=== PATIENT | female | born 1960 | race Caucasian/White ===

== ENCOUNTER 2017-02-04 10:14 | Emergency (ER) | payer OTHER, MEDICAID ==
[~2017-02-04] VITALS: Ht 172.7 cm; Wt 84.0 kg
[2017-02-04 10:16] VITALS: BP 137/94; PULSE 78; RESP 18; TEMP 98.9; O2SAT 96
--- NOTE | 2017-02-04 10:56 | PD ---
HPI Chief Complaint: Pain: Acute or Chronic Time Seen by Provider: 10:55 Travel History International Travel<30 days: No Contact w/Intl Traveler<30days: No Traveled to known affect area: No History of Present Illness HPI 56-year-old female came to the emergency room with history of a fall 3 days ago. Patient says since then her lower back and her shoulder has been hurting. She has been taking lntc-zhk-ttvvzwi Motrin and is on Soma but the pain has not been getting better. She came here on her own and denies any difficulty walking or any bowel or bladder incontinence. Vital signs been stable otherwise. Patient has history of chronic back pain and says that this particular back pain is worse than her usual. [facility] Past Medical History Narrative Medical List of her past medical, surgical, social and family history is reviewed from the nursing note. Social History Tobacco Use: Yes Allergies-Medications (Allergen,Severity, Reaction): Coded Allergies: Adhesives (Verified Allergy, Severe, PLASTIC TAPE, 05/05/04) Morphine (Verified Allergy, Severe, Rash, 05/05/04) RASH Ms Contin (Verified Allergy, Severe, 05/05/04) Uncoded Allergies: EPIDURAL STEROID INJECTION (Allergy, Severe, 05/05/04) rufino aloid (Adverse Reaction, Unknown, 02/04/17) swelling Comments No known drug allergies. Reported Meds & Prescriptions Reported Meds & Active Scripts Active Ibuprofen 600 Mg Tab 600 Mg PO Q6H PRN Reported Aleve (Naproxen Sodium) 220 Mg Cap Remeron (Mirtazapine) 15 Mg Tab 15 Mg PO DAILY Lisinopril 40 Mg Tab 40 Mg PO AC BREAKFAST Prozac (Fluoxetine HCl) 20 Mg Cap 20 Mg PO DAILY Valium (Diazepam) 5 Mg Tab 5 Mg PO BID PRN Fioricet (Fahqewolxn-Yttyhzseiytus-Gmrkvshl) 50-300-40 Mg Cap 1-2 Cap PO Q6H PRN Soma (Carisoprodol) 350 Mg Tab 350 Mg PO QID PRN Narrative Medication List of her home medications reviewed from the nursing note. Review of Systems Except as stated in HPI: all other systems reviewed are Neg Physical Exam Narrative GENERAL: Awake, alert, mild distress SKIN: Focused skin assessment warm/dry. HEAD: Atraumatic. Normocephalic. EYES: Pupils equal and round. No scleral icterus. No injection or drainage. ENT: No nasal bleeding or discharge. Mucous membranes pink and moist. NECK: Trachea midline. No JVD. CARDIOVASCULAR: Regular rate and rhythm. No murmur appreciated. RESPIRATORY: No accessory muscle use. Clear to auscultation. Breath sounds equal bilaterally. GASTROINTESTINAL: Abdomen soft, non-tender, nondistended. Hepatic and splenic margins not palpable. MUSCULOSKELETAL: No obvious deformities. No clubbing. No cyanosis. No edema. Point tenderness over L1 and L2 on the right paraspinal aspect NEUROLOGICAL: Awake and alert. No obvious cranial nerve deficits. Motor grossly within normal limits. Normal speech. PSYCHIATRIC: Appropriate mood and affect; insight and judgment normal. Data Data Last Documented VS Vital Signs Date Time Temp Pulse Resp B/P Pulse Ox O2 Delivery O2 Flow Rate FiO2 02/04/17 10:16 98.9 78 18 137/94 96 Orders Ketorolac Inj (Toradol Inj) (02/04/17 11:30) Orphenadrine Inj (Norflex Inj) (02/04/17 11:30) Spine, Lumbar Comp W/Obliq (02/04/17 ) Spine, Thoracic-Ap/Lat/Sw(3vw) (02/04/17 ) Shoulder, Complete (>2vws) (02/04/17 ) MDM Medical Decision Making Medical Screen Exam Complete: Yes Emergency Medical Condition: Yes Medical Record Reviewed: Yes Differential Diagnosis Lumbar fracture, thoracic fracture, shoulder strain, contusion Narrative Course 12:31 PM the x-rays are within normal limit except for degenerative changes. I' ll discharge her home. Patient was given IM Toradol and Norflex. Procedures EKG Prior to Arrival: No Diagnosis Primary Impression: Fall Qualified Code: W19.XXXA - Fall, initial encounter Additional Impressions: Contusion Qualified Code: S30.0XXA - Contusion of lower back, initial encounter Right shoulder strain Qualified Code: S46.911A - Right shoulder strain, initial encounter Referrals: Primary Care Physician 2 days Additional Instructions: Please return to the ER if the condition worsens or any other new concerns. Bedrest and assistance from driving and daily activity will be required for next couple days until the symptoms are better. Follow-up with your primary care as well Med/Other Pt SpecificInfo: Prescription(s) given, No Change to Meds Scripts Ibuprofen 600 Mg [id number] Mg PO Q6H PRN (Pain/Inflammation) #40 TAB Ref 0 Prov:Susan Washington MD 02/04/17 Disposition: 01 DISCHARGE HOME Condition: Stable Susan Wasihngton MD February 04, 2017 10:55
[2017-02-04] MEDS ORDERED: SOMA350T PO (11:03)
[2017-02-04] MEDS ORDERED: BUTA1CAP PO (11:03)
[2017-02-04] MEDS ORDERED: REME15TA PO (11:07)
[2017-02-04] MEDS ORDERED: LISI40TA PO (11:07)
[2017-02-04] MEDS ORDERED: DIAZ5 PO (11:07)
[2017-02-04] MEDS ORDERED: PROZ20CA11 PO (11:07)
[2017-02-04] MEDS ORDERED: ALEV220C (11:07)
[2017-02-04] MEDS ORDERED: ORPHENADRINE INJ 60 MG/2 ML AMP IM ONE (11:30)
[2017-02-04] MEDS ORDERED: KETOROLAC TROMETHAMINE 60 MG/2 ML (IM) VIAL IM ONE (11:30)
--- NOTE | 2017-02-04 12:09 | RADRPT ---
EXAM DATE/TIME: 02/04/2017 11:51 [facility] COMPARISON: No previous studies available for comparison. INDICATIONS : Fell Tuesday landing on fountain, pain right shoulder, and low back and mid thoracic spine.. MEDICAL HISTORY : None. SURGICAL HISTORY : Spinal fusion ENCOUNTER: Initial ACUITY: 4 - 6 days PAIN SCORE: 10/10 LOCATION: Thoracic spine FINDINGS: There is mild scoliotic deformity convex to the right. Epidural stimulator is in place with the tip a t T7. There is no evidence of acute fracture. Bony mineralization is normal. The vertebral bodies are normal in alignment on the lateral view. There is mild multilevel degenerative change throughout th e spine. CONCLUSION: 1. There is no evidence of acute fracture. José Luis Rendon MD on February 04, 2017 at 12:07 Board Certified Radiologist. This report was verified electronically.
--- NOTE | 2017-02-04 12:12 | RADRPT ---
EXAM DATE/TIME: 02/04/2017 11:52 [facility] COMPARISON: No previous studies available for comparison. INDICATIONS : Fall low back pain MEDICAL HISTORY : None. SURGICAL HISTORY : Spinal fusion ENCOUNTER: Initial ACUITY: 3 days PAIN SCORE: 7/10 LOCATION: Lumbar spine FINDINGS: The vertebral bodies are normal in alignment on the lateral view. There is interbody fusion L5-S1. Th ere is multilevel disc space narrowing and marginal osteophyte formation maximal at L4-L5. There is m ultilevel facet arthritis maximal at L5-S1. No spondylolysis or spondylolisthesis is present. CONCLUSION: 1. Moderate degenerative changes as described above. There is no evidence of acute fracture. José Luis Rendon MD on February 04, 2017 at 12:08 Board Certified Radiologist. This report was verified electronically.
--- NOTE | 2017-02-04 12:19 | RADRPT ---
EXAM DATE/TIME: 02/04/2017 11:42 [facility] COMPARISON: No previous studies available for comparison. INDICATIONS : Fell on shoulder pain. MEDICAL HISTORY : None. SURGICAL HISTORY : spinal fusion ENCOUNTER: Initial ACUITY: 3 days PAIN SCORE: 9/10 LOCATION: Lumbar spine FINDINGS: Multiple view examination of the right shoulder demonstrates no evidence of fracture or dislocation. The glenohumeral and acromioclavicular joints are maintained. There is normal range of motion betwe en internal and external rotation. Bony mineralization is normal. CONCLUSION: 1. Negative examination of the shoulder. José Luis Rendon MD on February 04, 2017 at 12:16 Board Certified Radiologist. This report was verified electronically.
[2017-02-04] MEDS ORDERED: IBUP-232 PO (12:33)
== END 2017-02-04 13:20 | disposition home or self-care (01) ==
LOC: NEPD 10:14
DX: S46.911A Strain of unspecified muscle, fascia and tendon at shoulder and upper arm level, right arm, initial encounter (principal); S30.0XXA Contusion of lower back and pelvis, initial encounter; W19.XXXA Unspecified fall, initial encounter
CPT/HCPCS: 72072; 72110; 73030; 96372; 99283; J1885; J2360

== ENCOUNTER 2017-09-27 12:33 | Observation (INO) | payer MEDICAID, MEDICARE, OTHER ==
[~2017-09-27] VITALS: Ht 172.7 cm; Wt 79.8 kg
[~2017-09-27 12:33] MED LIST: ALEV220C; BUTA1CAP PO; DIAZ5 PO; IBUP-232 PO; LISI40TA PO; PROZ20CA11 PO; REME15TA PO; SOMA350T PO
[2017-09-27 12:37] VITALS: BP 155/99; PULSE 90; RESP 16; TEMP 98.4; O2SAT 96
[2017-09-27] MEDS ORDERED: PANTOPRAZOLE SOD 40 MG DELAYED RELEASE TAB PO ONE (17:45)
--- NOTE | 2017-09-27 17:49 | PD ---
HPI Chief Complaint: GI Complaint Time Seen by Provider: 17:38 Travel History International Travel<30 days: No Contact w/Intl Traveler<30days: No Traveled to known affect area: No History of Present Illness HPI 57yo F with PMH of HTN, chronic back pain presents to the ED with c/o sharp midsternal pain since eating yesterday. Said pain is sharp, nonradiating and worst with eating but still there when she does not eat. Feels tight. Denies any sob, vomiting, fever, abdominal pain, focal weakness or numbness. Has some nausea. Pt said she is able to drink but pain is worst after drinking. PFSH Past Medical History ?: Not Past Surgical History Section: Yes Gynecologic Surgery: Yes Hysterectomy: Yes Social History Alcohol Use: No Tobacco Use: Yes Substance Use: No (MARIJUANA) Allergies-Medications (Allergen,Severity, Reaction): Coded Allergies: adhesive (Unverified Allergy, Severe, PLASTIC TAPE, 05/03/17) fentanyl (Verified Allergy, Severe, 09/27/17) morphine (Unverified Allergy, Severe, 05/03/17) RASH Uncoded Allergies: EPIDURAL STEROID INJECTION (Allergy, Severe, 05/05/04) rufino aloid (Adverse Reaction, Unknown, 02/04/17) swelling Reported Meds & Prescriptions Reported Meds & Active Scripts Active Ibuprofen 600 Mg Tab 600 Mg PO Q6H PRN Reported Remeron (Mirtazapine) 15 Mg Tab 15 Mg PO DAILY Lisinopril 40 Mg Tab 40 Mg PO AC BREAKFAST Prozac (Fluoxetine HCl) 20 Mg Cap 20 Mg PO DAILY Valium (Diazepam) 5 Mg Tab 5 Mg PO BID PRN Fioricet (Hhzibanvsg-Vxwltkzeugxtx-Ktxuhatx) 50-300-40 Mg Cap 1-2 Cap PO Q6H PRN Soma (Carisoprodol) 350 Mg Tab 350 Mg PO QID PRN Review of Systems Except as stated in HPI: all other systems reviewed are Neg Physical Exam Narrative GENERAL: 57yo F not in distress. SKIN: No rash on chest wall. HEAD: Atraumatic. Normocephalic. EYES: Pupils equal and round. No scleral icterus. No injection or drainage. ENT: No nasal bleeding or discharge. Mucous membranes pink and moist. NECK: Trachea midline. No JVD. CARDIOVASCULAR: Regular rate and rhythm. No murmur appreciated. RESPIRATORY: No accessory muscle use. Clear to auscultation. Breath sounds equal bilaterally. GASTROINTESTINAL: Abdomen soft, non-tender, nondistended. MUSCULOSKELETAL: No obvious deformities. No clubbing. No cyanosis. No edema. NEUROLOGICAL: Awake and alert. No obvious cranial nerve deficits. Motor grossly within normal limits. Normal speech. PSYCHIATRIC: Appropriate mood and affect; insight and judgment normal. Data Data Last Documented VS Vital Signs Date Time Temp Pulse Resp B/P (MAP) Pulse Ox O2 Delivery O2 Flow Rate FiO2 09/27/17 12:37 98.4 90 16 155/99 (117) 96 Orders Orders Electrocardiogram (09/27/17 17:45) Basic Metabolic Panel (Bmp) (09/27/17 17:45) Complete Blood Count With Diff (09/27/17 17:45) Prothrombin Time / Inr (Pt) (09/27/17 17:45) Act Partial Throm Time (Ptt) (09/27/17 17:45) Troponin I (09/27/17 17:45) Chest, Single Ap (09/27/17 17:45) Pantoprazole (Protonix) (09/27/17 17:45) Lipase (09/27/17 17:49) Ondansetron Inj (Zofran Inj) (09/27/17 18:00) Aspirin (Aspirin) (09/27/17 19:45) Nitroglycerin Sl (Nitrostat Sl) (09/27/17 19:45) Admit Order (Ed Use Only) (09/27/17 19:33) Activity Bed Rest With Brp (09/27/17 19:34) Vital Signs (Adult) Q4H (09/27/17 19:34) Cardiac Rhythm .As Directed (09/27/17 19:34) Notify Dr: Other .PRN (09/27/17 19:34) Notify DrBlake Parameters (09/27/17 19:34) Resp Oxygen Nasal Cannula (09/27/17 ) Ckmb (Isoenzyme) Profile (09/27/17 19:34) Ckmb (Isoenzyme) Profile (09/27/17 22:34) Troponin I (09/27/17 19:34) Troponin I (09/27/17 22:34) Electrocardiogram (09/27/17 22:34) ^ Obtain (09/27/17 19:34) Sodium Chloride 0.9% Flush (Ns Flush) (09/27/17 19:45) Sodium Chloride 0.9% Flush (Ns Flush) (09/27/17 21:00) Hair Spring Cutter / Telemetry LINDA.Q8H (09/27/17 19:34) Labs Laboratory Tests Test 09/27/17 17:10 White Blood Count 10.2 TH/MM3 Red Blood Count 4.68 MIL/MM3 Hemoglobin 14.8 GM/DL Hematocrit 42.7 % Mean Corpuscular Volume 91.2 FL Mean Corpuscular Hemoglobin 31.7 PG Mean Corpuscular Hemoglobin Concent 34.8 % Red Cell Distribution Width 13.2 % Platelet Count 281 TH/MM3 Mean Platelet Volume 8.5 FL Neutrophils (%) (Auto) 54.7 % Lymphocytes (%) (Auto) 36.8 % Monocytes (%) (Auto) 6.3 % Eosinophils (%) (Auto) 1.7 % Basophils (%) (Auto) 0.5 % Neutrophils # (Auto) 5.6 TH/MM3 Lymphocytes # (Auto) 3.8 TH/MM3 Monocytes # (Auto) 0.6 TH/MM3 Eosinophils # (Auto) 0.2 TH/MM3 Basophils # (Auto) 0.0 TH/MM3 CBC Comment DIFF FINAL Differential Comment Prothrombin Time 10.5 SEC Prothromb Time International Ratio 1.0 RATIO Activated Partial Thromboplast Time 26.7 SEC Blood Urea Nitrogen 11 MG/DL Creatinine 1.00 MG/DL Random Glucose 93 MG/DL Calcium Level 9.4 MG/DL Sodium Level 137 MEQ/L Potassium Level 3.9 MEQ/L Chloride Level 103 MEQ/L Carbon Dioxide Level 27.4 MEQ/L Anion Gap 7 MEQ/L Estimat Glomerular Filtration Rate 58 ML/MIN Troponin I LESS THAN 0.02 NG/ML Lipase 194 U/L [facility] Medical Decision Making Medical Screen Exam Complete: Yes Emergency Medical Condition: Yes Interpretation(s) EKG: Sinus bradycardia at 58bpm. TWI aVL. No ST segment elevation or depression. Differential Diagnosis ACS vs. GERD vs. achalasia vs. peptic ulcer disease Narrative Course 57yo F with atypical chest pain. However, pt has some cardiac risk factors including HTN and cig smoking. Said she feels chest tightness even if she does not eat. Never had chest pain like this before. Never had cardiac stress test. Labs, reviewed, no leukocytosis. Troponin negative. CXR negative. Pt given protonix with no improvement of pain. Pt given aspirin and morphine. Even though chest pain is atypical, pt has some risk factors and will admit to chest pain center for serial EKG and cardiac enzymes. Diagnosis Primary Impression: Chest pain Qualified Codes: R07.9 - Chest pain, unspecified Admitting Information Admitting Physician Requests: Cely Prince DO Sep 27, 2017 17:49
[2017-09-27] MEDS ORDERED: ONDANSETRON HCL 4 MG/2 ML VIAL IV PUSH ONE (18:00)
[2017-09-27 18:19] LABS: AUTOMATED NEUTROPHIL # 5.6 TH/MM3 (1.8-7.7); BASOPHIL % 0.5 % (0.0-2.0); EOSINOPHIL # 0.2 TH/MM3 (0-0.4); EOSINOPHIL % 1.7 % (0.0-4.0); HEMATOCRIT 42.7 % (35.0-46.0); HEMOGLOBIN 14.8 GM/DL (11.6-15.3); LYMPH % 36.8 % (9.0-44.0); LYMPHOCYTE # 3.8 TH/MM3 (1.0-4.8); MEAN CELL VOLUME 91.2 FL (80.0-100.0); MEAN CORPUSCULAR HEMOGLOBIN 31.7 PG (27.0-34.0); MEAN CORPUSCULAR HGB CONC 34.8 % (32.0-36.0); MEAN PLATELET VOLUME 8.5 FL (7.0-11.0); MONO % 6.3 % (0.0-8.0); MONOCYTE # 0.6 TH/MM3 (0-0.9); NEUT % 54.7 % (16.0-70.0); PLATELET COUNT 281 TH/MM3 (150-450); RED BLOOD COUNT 4.68 MIL/MM3 (4.00-5.30); RED CELL DISTRIBUTION WIDTH 13.2 % (11.6-17.2); WHITE BLOOD COUNT 10.2 TH/MM3 (4.0-11.0)
--- NOTE | 2017-09-27 18:23 | RADRPT ---
EXAM DATE/TIME: 09/27/2017 18:07 [facility] COMPARISON: No previous studies available for comparison. INDICATIONS : Chest pain, in medial portion of chest. MEDICAL HISTORY : None. SURGICAL HISTORY : Spinal fusion. ENCOUNTER: Initial ACUITY: 1 day PAIN SCORE: 4/10 LOCATION: Bilateral chest FINDINGS: A single view of the chest demonstrates the lungs to be symmetrically aerated without evidence of mas s, infiltrate or effusion. The cardiomediastinal contours are unremarkable. Osseous structures are intact. CONCLUSION: No evidence of acute cardiopulmonary disease. Jay Jay Messina MD on September 27, 2017 at 18:20 Board Certified Radiologist. This report was verified electronically.
[2017-09-27 18:40] LABS: PROTHROMBIN TIME - PATIENT 10.5 SEC (9.8-11.6)
[2017-09-27 18:46] LABS: BICARBONATE 27.4 MEQ/L (21.0-32.0); BLOOD UREA NITROGEN 11 MG/DL (7-18); CALCIUM 9.4 MG/DL (8.5-10.1); CHLORIDE 103 MEQ/L (98-107); GLOMERULAR FILTRATION RATE 58 ML/MIN (>89); GLUCOSE,RANDOM 93 MG/DL (74-106); SODIUM (NA) 137 MEQ/L (136-145)
[2017-09-27 18:48] LABS: TROPONIN I LESS THAN 0.02 NG/ML (0.02-0.05)
[2017-09-27] MEDS ORDERED: SODIUM CHLORIDE 0.9% FLUSH 10 ML FLUSH IV FLUSH PRN (19:45)
[2017-09-27] MEDS ORDERED: ASPIRIN 325 MG TAB PO ONE (19:45)
[2017-09-27] MEDS ORDERED: NITROGLYCERIN 0.4 MG SL 25 TABS/BTL SL PRN (19:45)
[2017-09-27 20:19] VITALS: BP 161/87; PULSE 68; RESP 18; O2SAT 98
[2017-09-27 21:01] LABS: TROPONIN I LESS THAN 0.02 NG/ML (0.02-0.05)
[2017-09-27 21:55] VITALS: BP 126/61; PULSE 60; RESP 18; TEMP 98.5; O2SAT 98
[2017-09-27] MEDS: SODIUM CHLORIDE 0.9% FLUSH 10 ML FLUSH IV FLUSH SCH (23:29)
[2017-09-28] VITALS (9 sets, daily range): BP systolic 120–144; BP diastolic 59–71; PULSE 58–69; RESP 18; TEMP 98–98.8; O2SAT 95–98
[2017-09-28 00:05] LABS: TROPONIN I LESS THAN 0.02 NG/ML (0.02-0.05)
--- NOTE | 2017-09-28 08:09 | HHI.HP ---
HPI Primary Care Physician Monica Chandler MD Chief Complaint Dysphasia History of Present Illness 57-year-old female with history of chronic back pain and hypertension presents to emergency room for further evaluation of pain after eating. Onset evening of 09/26/2017 after eating dinner. Location substernal. Reports "feels like my sternal in inflamed and something stuck in esophagus." Severity moderate. No radiation of discomfort. Duration constant. No associated symptoms of nausea, vomiting, dyspnea, or diaphoresis. No known precipitating or relieving factors. Became concerned because she does not have a history of GERD and symptoms persisted therefore came to ER for further evaluation. Able to swallow food and water. Review of Systems General: No fatigue,weakness, fever, chills, recent illness, or change in appetite. Has been in her general state of health. Chronic back pain controlled with Tens unit. HEENT: No HARRIS, no vision changes, no nasal congestion or drainage, no dysphasia CV: As stated above. No exertional chest pain or pressure. RESP: No SOB, cough, wheeze GI: As stated above. No history of GERD. No nausea, vomiting, or bowel changes. : No dysuria, urgency, frequency EXT: No lower leg edema, no paraesthesias MS: Chronic back pain, neurostimulator unit in place, reports no use of oral pain medication x3 years. No change in ROM NEURO: No change in memory, LOC, motor/sensory deficits PSYCH: No anxiety, depression SKIN: No rashes, no concerning lesions Past Family Social History Allergies: Coded Allergies: adhesive (Unverified Allergy, Severe, PLASTIC TAPE, 05/03/17) fentanyl (Verified Allergy, Severe, 09/27/17) morphine (Unverified Allergy, Severe, 05/03/17) RASH Uncoded Allergies: EPIDURAL STEROID INJECTION (Allergy, Severe, 05/05/04) rufino aloid (Adverse Reaction, Unknown, 02/04/17) swelling Past Medical History Chronic back pain, hypertension, tobacco use, neurostimulator unit Past Surgical History x3 back surgeries Reported Medications Active Ibuprofen 600 Mg Tab 600 Mg PO Q6H PRN Remeron (Mirtazapine) 15 Mg Tab 15 Mg PO DAILY Lisinopril 40 Mg Tab 40 Mg PO AC BREAKFAST Prozac (Fluoxetine HCl) 20 Mg Cap 20 Mg PO DAILY Valium (Diazepam) 5 Mg Tab 5 Mg PO BID PRN Fioricet (Baylxfbhmp-Uxlqmizjjgdpk-Dbmlvjjp) 50-300-40 Mg Cap 1-2 Cap PO Q6H PRN Soma (Carisoprodol) 350 Mg Tab 350 Mg PO QID PRN Active Ordered Medications Current Medications Medications (Trade) Dose Ordered Sig/Cayla Route Start Time Stop Time Status Last Admin (Nitrostat Sl) 0.4 mg Q5M PRN SL 09/27/17 19:45 (NS Flush) 2 ml UNSCH PRN IV FLUSH 09/27/17 19:45 (NS Flush) 2 ml BID IV FLUSH 09/27/17 21:00 09/27/17 23:29 (PROzac) 20 mg DAILY PO 09/28/17 09:00 UNV Non-Formulary Medication 40 mg AC BREAKFAST PO 09/29/17 07:00 UNV Family History Noncontributory for early onset cardiovascular disease. Social History Known hypertension. No known diabetes, CAD, or hyperlipidemia. Current smoker. . Past cardiac testing No recent stress testing. Physical Exam Vital Signs Vital Signs Date Time Temp Pulse Resp B/P (MAP) Pulse Ox O2 Delivery O2 Flow Rate FiO2 09/28/17 07:14 98.3 69 18 120/59 (79) 97 09/28/17 04:43 63 09/28/17 03:35 98.0 63 18 128/60 (82) 96 09/28/17 00:03 58 09/27/17 21:55 98.5 60 18 126/61 (82) 98 09/27/17 20:19 68 18 161/87 (111) 98 09/27/17 12:37 98.4 90 16 155/99 (117) 96 Physical Exam GENERAL: Alert WN, WD, NAD, pleasant, female who appears older than stated age. HEAD: NC, AT NECK: Supple, no masses, trachea midline CV: RRR, without murmur, rub, gallop, no JVD, S1-S2 no S3-S4. Point location tender with palpation substernally. RESP: Clear lungs throughout bilateral, no crackles, wheeze, rhonchi, symmetrical chest rise, nonlabored, able to speak in full sentences ABD: Tender with palpation substernal, point tenderness. Soft, NT, ND, no masses , positive bowel tones EXT: Pulses +24, no dependent edema MS: Normal tone 4 extremities, no obvious deformities, full range of motion NEURO: CN II through CN XII grossly intact, motor strength 5/5 PSYCH: A+O 3, pleasant affect, appropriate speech, mood, insight and judgment SKIN: Normal turgor, normal texture Laboratory Laboratory Tests Test 09/27/17 17:10 09/27/17 20:20 09/27/17 22:30 White Blood Count 10.2 Red Blood Count 4.68 Hemoglobin 14.8 Hematocrit 42.7 Mean Corpuscular Volume 91.2 Mean Corpuscular Hemoglobin 31.7 Mean Corpuscular Hemoglobin Concent 34.8 Red Cell Distribution Width 13.2 Platelet Count 281 Mean Platelet Volume 8.5 Neutrophils (%) (Auto) 54.7 Lymphocytes (%) (Auto) 36.8 Monocytes (%) (Auto) 6.3 Eosinophils (%) (Auto) 1.7 Basophils (%) (Auto) 0.5 Neutrophils # (Auto) 5.6 Lymphocytes # (Auto) 3.8 Monocytes # (Auto) 0.6 Eosinophils # (Auto) 0.2 Basophils # (Auto) 0.0 CBC Comment DIFF FINAL Differential Comment Prothrombin Time 10.5 Prothromb Time International Ratio 1.0 Activated Partial Thromboplast Time 26.7 Blood Urea Nitrogen 11 Creatinine 1.00 Random Glucose 93 Calcium Level 9.4 Sodium Level 137 Potassium Level 3.9 Chloride Level 103 Carbon Dioxide Level 27.4 Anion Gap 7 Estimat Glomerular Filtration Rate 58 Troponin I LESS THAN 0.02 LESS THAN 0.02 LESS THAN 0.02 Lipase 194 Total Creatine Kinase 98 98 Result Diagram: 09/27/17 1710 09/27/17 1710 Imaging Last 48 hours Impressions Chest X-Ray 09/27/17 1745 Signed Impressions: Service Date/Time: Wednesday, September 27, 2017 18:07 - CONCLUSION: No evidence of acute cardiopulmonary disease. Jay Jay Messina MD Course EKG NSR, sinus arrhythmia, no st t segment changes Caprini VTE Risk Assessment Caprini VTE Risk Assessment: No/Low Risk (score <= 1) Caprini Risk Assessment Model Point Value = 1 Point Value = 2 Point Value = 3 Point Value = 5 Age 41-60 Minor surgery BMI > 25 kg/m2 Swollen legs Varicose veins or History of unexplained or recurrent spontaneous Oral contraceptives or hormone replacement Sepsis (< 1 month) Serious lung disease, including pneumonia (< 1 month) Abnormal pulmonary function Acute myocardial infarction Congestive heart failure (< 1 month) History of inflammatory bowel disease Medical patient at bed rest Age 61-74 Arthroscopic surgery Major open surgery (> 45 min) Laparoscopic surgery (> 45 min) Malignancy Confined to bed (> 72 hours) Immobilizing plaster cast Central venous access Age >= 75 History of VTE Family history of VTE Factor V Leiden Prothrombin [id number] Lupus anticoagulant Anticardiolipin antibodies Elevated serum homocysteine Heparin-induced thrombocytopenia Other congenital or acquired thrombophilia Stroke (< 1 month) Elective arthroplasty Hip, pelvis, or leg fracture Acute spinal cord injury (< 1 month) Prophylaxis Regimen Total Risk Factor Score Risk Level Prophylaxis Regimen 0-1 Low Early ambulation 2 Moderate Order ONE of the following: *Sequential Compression Device (SCD) *Heparin 5000 units SQ BID 3-4 Higher Order ONE of the following medications: *Heparin 5000 units SQ TID *Enoxaparin/Lovenox 40 mg SQ daily (WT < 150 kg, CrCl > 30 mL/min) *Enoxaparin/Lovenox 30 mg SQ daily (WT < 150 kg, CrCl > 10-29 mL/min) *Enoxaparin/Lovenox 30 mg SQ BID (WT < 150 kg, CrCl > 30 mL/min) AND/OR *Sequential Compression Device (SCD) 5 or more Highest Order ONE of the following medications: *Heparin 5000 units SQ TID (Preferred with Epidurals) *Enoxaparin/Lovenox 40 mg SQ daily (WT < 150 kg, CrCl > 30 mL/min) *Enoxaparin/Lovenox 30 mg SQ daily (WT < 150 kg, CrCl > 10-29 mL/min) *Enoxaparin/Lovenox 30 mg SQ BID (WT < 150 kg, CrCl > 30 mL/min) AND *Sequential Compression Device (SCD) Assessment and Plan Assessment and Plan #1 Atypical chest pain-admitted to chest pain center. Ruled out with 3 sets of EKGs, cardiac enzymes, and monitored overnight. Seen and evaluated by Dr. José Luis Franklin. Symptoms very atypical for cardiac and most likely GI related. Plan to administer a GI cocktail and reassess. If GI cocktail does not improve symptom, plan is to administer Toradol IV 30 mg x1 dose as she also has localized point tenderness substernally. No further cardiac testing. Consider GI consult if symptoms not improved with above. Patient agreeable to plan of care. 1030- GI cocktail made esophagus discomfort worse, reports dysphasia. Able to swallow jello and drinks, but continues to report discomfort "like something is stuck in there." Dr. Franklin made aware, proceed with GI consult. Discussed plan of care with patient in length. Marquita Dee Sep 28, 2017 08:09
[2017-09-28] MEDS ORDERED: ALUMINUM/MAGNESIUM/SIMETH 30 ML CUP PO ONE (08:30)
[2017-09-28] MEDS ORDERED: LIDOCAINE VISCOUS 2% SOLN 15 ML UDC SWISH-SWAL ONE (08:30)
[2017-09-28] MEDS: FLUoxetine HCL 20 MG CAP PO SCH (08:56)
[2017-09-28] MEDS: SODIUM CHLORIDE 0.9% FLUSH 10 ML FLUSH IV FLUSH SCH ×2 (08:56→20:37)
--- NOTE | 2017-09-28 09:10 | EKG ---
Date Performed: 09/27/2017 Time Performed: 23:01:37 PTAGE: 57 years EKG: NORMAL Sinus rhythm ABNORMAL RHYTHM ECG PREVIOUS TRACING : 09/27/2017 20.31 Since previous tracing, no significant change noted DOCTOR: José Luis Franklin Interpretating Date/Time 09/28/2017 09:10:23
--- NOTE | 2017-09-28 09:15 | EKG ---
Date Performed: 09/27/2017 Time Performed: 20:31:39 PTAGE: 57 years EKG: NORMAL Sinus rhythm NORMAL ECG PREVIOUS TRACING : 09/27/2017 18.04 Since previous tracing, no significant change noted DOCTOR: José Luis Franklin Interpretating Date/Time 09/28/2017 09:13:37
--- NOTE | 2017-09-28 09:18 | EKG ---
Date Performed: 09/27/2017 Time Performed: 18:04:49 PTAGE: 57 years EKG: NORMAL Sinus rhythm NORMAL ECG NO PREVIOUS TRACING DOCTOR: José Luis Franklin Interpretating Date/Time 09/28/2017 09:17:42
[2017-09-28] MEDS ORDERED: KETOROLAC TROMETHAMINE 30 MG/ML (IVP) VIAL IV PUSH ONE (10:45)
--- NOTE | 2017-09-28 13:37 | PD.CONS ---
HPI History of Present Illness This is a 57 year old female who presented for sternal pain. 2 days ago she began experiencing this pain, it is constant and worse after swallowing. SHe is also having some regurgitation of food when she swallows. SHe also has bolus sensation, she feels this in 2 places. Symptoms worse with solid food but she is now having the problem even with soft food. She admits mild nausea, no vomiting. She had EGD in [place] 4-5 y ago, it was normal per pt. Never had colonoscopy. Not on blood thinners. Denies acid reflux. (Taya Cifuentes) PFSH Past Medical History neuropathy HTN back pain insomnia migraines Past Surgical History c section lithotripsy back surgery x 3 hysterectomy (Taya Cifuentes) Coded Allergies: adhesive (Unverified Allergy, Severe, PLASTIC TAPE, 05/03/17) fentanyl (Verified Allergy, Severe, 09/27/17) morphine (Unverified Allergy, Severe, 05/03/17) RASH Uncoded Allergies: EPIDURAL STEROID INJECTION (Allergy, Severe, 05/05/04) rufino aloid (Adverse Reaction, Unknown, 02/04/17) swelling Family History none Social History distant hx heavy drinking but quit 30 y ago smokes 1-2 cigarettes daily regular use marijuana (Taya Cifuentes) Review of Systems Constitutional: DENIES: Weight loss Endocrine: DENIES: Polydipsia Eyes: DENIES: Blurred vision Ears, nose, mouth, throat: DENIES: Hearing loss Respiratory: DENIES: Wheezing Cardiovascular: DENIES: Chest pain Gastrointestinal: COMPLAINS OF: Nausea, Difficulty Swallowing, DENIES: Abdominal pain, Black stools, Bloody stools, Constipation, Diarrhea, Vomiting, Hematemesis Genitourinary: DENIES: Hematuria Musculoskeletal: DENIES: Joint Swelling Integumentary: DENIES: Abnormal pigmentation Hematologic/lymphatic: DENIES: Bruising Immunologic/allergic: DENIES: Eczema Neurologic: DENIES: Abnormal gait Psychiatric: DENIES: Confusion (Taya Cifuentes) GI Exam Vitals I&O Vital Signs Date Time Temp Pulse Resp B/P (MAP) Pulse Ox O2 Delivery O2 Flow Rate FiO2 09/28/17 12:13 98.5 67 18 144/71 (95) 98 09/28/17 07:14 98.3 69 18 120/59 (79) 97 09/28/17 04:43 63 09/28/17 03:35 98.0 63 18 128/60 (82) 96 09/28/17 00:03 58 09/27/17 21:55 98.5 60 18 126/61 (82) 98 09/27/17 20:19 68 18 161/87 (111) 98 Imaging Last Impressions Chest X-Ray 09/27/17 [id number] Signed Impressions: Service Date/Time: Wednesday, September 27, 2017 18:07 - CONCLUSION: No evidence of acute cardiopulmonary disease. Jay Jay Messina MD Laboratory Test 09/27/17 17:10 09/27/17 20:20 09/27/17 22:30 White Blood Count 10.2 TH/MM3 Red Blood Count 4.68 MIL/MM3 Hemoglobin 14.8 GM/DL Hematocrit 42.7 % Mean Corpuscular Volume 91.2 FL Mean Corpuscular Hemoglobin 31.7 PG Mean Corpuscular Hemoglobin Concent 34.8 % Red Cell Distribution Width 13.2 % Platelet Count 281 TH/MM3 Mean Platelet Volume 8.5 FL Neutrophils (%) (Auto) 54.7 % Lymphocytes (%) (Auto) 36.8 % Monocytes (%) (Auto) 6.3 % Eosinophils (%) (Auto) 1.7 % Basophils (%) (Auto) 0.5 % Neutrophils # (Auto) 5.6 TH/MM3 Lymphocytes # (Auto) 3.8 TH/MM3 Monocytes # (Auto) 0.6 TH/MM3 Eosinophils # (Auto) 0.2 TH/MM3 Basophils # (Auto) 0.0 TH/MM3 CBC Comment DIFF FINAL Differential Comment Prothrombin Time 10.5 SEC Prothromb Time International Ratio 1.0 RATIO Activated Partial Thromboplast Time 26.7 SEC Blood Urea Nitrogen 11 MG/DL Creatinine 1.00 MG/DL Random Glucose 93 MG/DL Calcium Level 9.4 MG/DL Sodium Level 137 MEQ/L Potassium Level 3.9 MEQ/L Chloride Level 103 MEQ/L Carbon Dioxide Level 27.4 MEQ/L Anion Gap 7 MEQ/L Estimat Glomerular Filtration Rate 58 ML/MIN Troponin I LESS THAN 0.02 NG/ML LESS THAN 0.02 NG/ML LESS THAN 0.02 NG/ML Lipase 194 U/L Total Creatine Kinase 98 U/L 98 U/L Physical Examination HEENT: PERRL; normocephalic; atraumatic; no jaundice. CHEST: CTA CARDIAC: RRR ABDOMEN: Soft, nondistended, nontender; no hepatosplenomegaly; bowel sounds are present in all four quadrants. EXTREMITIES: No clubbing, cyanosis, or edema. SKIN: Normal; no rash; no jaundice. [employer]: No focal deficits; alert and oriented times three. (Taya Cifuentes) Assessment and Plan Plan ASSESSMENT - dysphagia, odynophagia - onset 2 day ago, sternal pain worse after eating, bolus sensation. cardiac cause has been ruled out. EGD 4-5 y ago and normal per pt. PLAN - soft diet - EGD with poss dilatation - NPO after midnight - obtain consent - further recs to follow This pt seen by myself and Dr Nunez and this note is written on her behalf (Taya Cifuentes) Physician Comments seen, examined agree with above egd in am (Zoya Nunez MD) Taya Cifuentes Sep 28, 2017 13:37 Zoya Nunez MD Sep 28, 2017 19:26
[2017-09-28] MEDS: LISINOPRIL 20 MG TAB PO SCH (14:21)
--- NOTE | 2017-09-28 18:01 | PD.CARD.PN ---
Subjective Subjective Remarks No further complaints, continues to have feeling of something "stuck in my esophagus." Objective Medications Current Medications Medications (Trade) Dose Ordered Sig/Cayla Route Start Time Stop Time Status Last Admin (Nitrostat Sl) 0.4 mg Q5M PRN SL 09/27/17 19:45 (NS Flush) 2 ml UNSCH PRN IV FLUSH 09/27/17 19:45 (NS Flush) 2 ml BID IV FLUSH 09/27/17 21:00 09/28/17 08:56 (PROzac) 20 mg DAILY PO 09/28/17 09:00 09/28/17 08:56 (Prinivil) 40 mg DAILY PO 09/28/17 15:00 09/28/17 14:21 Vital Signs / I&O Vital Signs Date Time Temp Pulse Resp B/P (MAP) Pulse Ox O2 Delivery O2 Flow Rate FiO2 09/28/17 16:38 98.8 62 18 124/59 (80) 96 09/28/17 12:13 98.5 67 18 144/71 (95) 98 09/28/17 07:14 98.3 69 18 120/59 (79) 97 09/28/17 04:43 63 09/28/17 03:35 98.0 63 18 128/60 (82) 96 09/28/17 00:03 58 09/27/17 21:55 98.5 60 18 126/61 (82) 98 09/27/17 20:19 68 18 161/87 (111) 98 Physical Exam No acute findings from am exam. Continues to have point tenderness substernally. Laboratory Laboratory Tests Test 09/27/17 20:20 09/27/17 22:30 Total Creatine Kinase 98 U/L 98 U/L Troponin I LESS THAN 0.02 NG/ML LESS THAN 0.02 NG/ML Assessment and Plan Assessment and Plan #1 Atypical chest pain-admitted to chest pain center. Ruled out with 3 sets of EKGs, cardiac enzymes, and monitored overnight. Seen and evaluated by Dr. José Luis Franklin. GI consult placed early in morning due highly atypical chest pain, thought to be more GI related. Dr. Franklin notified of planned EGD in morning per GI note. Dr. Franklin agrees to keep patient on [facility] service as patient will likely will be discharged after EGD in morning Marquita Dee Sep 28, 2017 18:01
[2017-09-28] MEDS ORDERED: KETOROLAC TROMETHAMINE 30 MG/ML (IVP) VIAL IV PUSH PRN (20:45)
[2017-09-29 00:01] VITALS: PULSE 55
[2017-09-29 00:26] VITALS: BP 119/56; PULSE 61; RESP 15; TEMP 97.9; O2SAT 97
[2017-09-29 03:24] VITALS: PULSE 54
[2017-09-29 04:50] VITALS: BP 119/58; PULSE 59; RESP 16; TEMP 97.7; O2SAT 98
[2017-09-29] MEDS ORDERED: LISINOPRIL 20 MG TAB PO SCH ×2 (07:00→09:00)
[2017-09-29 07:05] VITALS: BP 133/63; PULSE 60; RESP 18; TEMP 97; O2SAT 97
[2017-09-29] MEDS ORDERED: POVIDONE IODINE 5% (ANTISEPSIS KIT) 4 APPLICATIONS EACH NARE PRN (07:15)
[2017-09-29] MEDS ORDERED: LACTATED RINGER'S 1000 ML IV PRN (07:15)
[2017-09-29] MEDS ORDERED: CHLORHEXIDINE GLUCONATE 2 % 1 PACK (2 CLOTHS) TOPICAL PRN (07:15)
[2017-09-29] MEDS ORDERED: METOPROLOL TARTRATE 25 MG TAB PO PRN (07:15)
[2017-09-29] MEDS ORDERED: SODIUM CHLORID 0.9% 500 ML IV PRN (07:15)
--- NOTE | 2017-09-29 09:42 | GIPROC ---
[facility] [address]. [facility], [id number] EGD WITH DILATION PROCEDURE REPORT EXAM DATE: 09/29/2017 PATIENT NAME: Dolly Marin MR#: [id number] BIRTHDATE: 1960 ATTENDING: Zoya Nunez MD ORDER #: [id number] INTERIOR DESIGNER: Griselda Loco and Paola Muñoz STATUS: inpatient INDICATIONS: The patient is a 57 yr old female here for an EGD with dilation due to odynophagia, dysphagia PROCEDURE PERFORMED: EGD w/ biopsy EGD w/ dilation of esophagus via guidewire MEDICATIONS: None and Per Anesthesia. TOPICAL ANESTHETIC: none CONSENT: The patient understands the risks and benefits of the procedure and understands that these risks include, but are not limited to: sedation, allergic reaction, infection, perforation and/or bleeding. Alternative means of evaluation and treatment include, among others: physical exam, x-rays, and/or surgical intervention. The patient elects to proceed with this endoscopic procedure. medical equipment was checked for proper function. Hand hygiene and appropriate measures for infection prevention was taken. After the risks, benefits and alternatives of the procedure were thoroughly explained, Informed consent was verified, confirmed and timeout was successfully executed by the treatment team. The patient was anesthetized with topical anesthesia and the Pentax EG-[id number] endoscope was introduced through the mouth and advanced to the second portion of the duodenum. The instrument was slowly withdrawn as the mucosa was fully examined. Gastritis antrum-biopsy gastric ulcer antrum-biopsy esophagistis distal esophagus -biopsy dudoenitis second portion-biopsy spasm distal esophagus. Dilation was performed at gastroesophageal junction. DILATOR: SIZE(S): RESISTANCE: HEME: APPEARANCE: Dilator: Savary over guidewire Size(s): 16 COMMENT: Retroflexed views revealed a hiatal hernia ADVERSE EVENTS: There were no complications. IMPRESSIONS: 1. Gastritis antrum-biopsy gastric ulcer antrum-biopsy esophagistis distal esophagus -biopsy dudoenitis second portion-biopsy spasm distal esophagus 2. Retroflexed views revealed a hiatal hernia RECOMMENDATIONS: 1. Await biopsy results. Biopsy results will not be ready for 7-10 days. If you don't hear from us in two weeks, call our office for biopsy results. 2. Anti-reflux regimen 3. Continue PPI 4. Dilatations PRN 5. If still dysphagia please call-ba swallow ok to dc home from [facility] 2 weeks REPEAT EXAM: Return 1 year EGD Zoya Nunez MD eSigned: Zoya Nunez MD 09/29/2017 9:41 AM cc: PATIENT NAME: Tomas Dolly J MR#: [id number]
[2017-09-29] MEDS: FLUoxetine HCL 20 MG CAP PO SCH (10:18)
[2017-09-29] MEDS: SODIUM CHLORIDE 0.9% FLUSH 10 ML FLUSH IV FLUSH SCH (10:18)
[2017-09-29] MEDS: LISINOPRIL 20 MG TAB PO SCH (10:18)
--- NOTE | 2017-09-29 10:22 | HHI.DCPOC ---
Discharge Care Plan Diagnosis: (1) Chest pain, atypical (2) Gastritis (3) Esophagitis (4) Esophageal spasm (5) Hiatal hernia Goals to Promote Your Health * To prevent worsening of your condition and complications * To maintain your health at the optimal level Directions to Meet Your Goals Take your medications as prescribed Follow your dietary instruction Follow activity as directed Keep your appointments as scheduled Take your immunizations and boosters as scheduled If your symptoms worsen call your PCP, if no PCP go to Urgent Care Center or Emergency Room Smoking is Dangerous to Your Health. Avoid second hand smoke Call the 24-hour hour crisis hotline for domestic abuse at [place] Sep 29, 2017 10:22
[2017-09-29 12:26] VITALS: BP 117/58; PULSE 63; RESP 18; TEMP 96.8; O2SAT 95
[2017-09-29] MEDS ORDERED: PROT40TA PO (15:15)
[2017-09-30] MEDS ORDERED: PANTOPRAZOLE SOD 40 MG DELAYED RELEASE TAB PO SCH (09:00)
--- NOTE | 2017-09-30 16:00 | EKG ---
Date Performed: 09/28/2017 Time Performed: 09:00:27 PTAGE: 57 years EKG: ELECTRONIC ATRIAL PACEMAKER ABNORMAL RHYTHM ECG NO PREVIOUS TRACING DOCTOR: José Luis Franklin Interpretating Date/Time 09/30/2017 15:58:53
== END 2017-09-29 16:36 | disposition home or self-care (01) ==
LOC: NEPD 12:33 → NEDA 19:35 → NEPHCDU 21:07
PROVIDERS: ADMIT Internal Medicine Interventional Cardiology; ATTEND Internal Medicine Interventional Cardiology
DX: R07.89 Other chest pain (principal); R47.02 Dysphasia; K29.50 Unspecified chronic gastritis without bleeding; K20.9 Esophagitis, unspecified; K22.4 Dyskinesia of esophagus; K44.9 Diaphragmatic hernia without obstruction or gangrene; K25.9 Gastric ulcer, unspecified as acute or chronic, without hemorrhage or perforation; K29.80 Duodenitis without bleeding; R00.1 Bradycardia, unspecified; R94.31 Abnormal electrocardiogram [ECG] [EKG]; I10 Essential (primary) hypertension; M54.9 Dorsalgia, unspecified; G89.29 Other chronic pain; I49.8 Other specified cardiac arrhythmias; Z98.1 Arthrodesis status; G62.9 Polyneuropathy, unspecified; F12.90 Cannabis use, unspecified, uncomplicated; F17.210 Nicotine dependence, cigarettes, uncomplicated; Z79.899 Other long term (current) drug therapy; Z88.5 Allergy status to narcotic agent
CPT/HCPCS: 00813; 43239; 71045; 80048; 82550; 83690; 84484; 85025; 85610; 85730; 88305; 88312; 93005; 96374; 96375; 96376; 99285; C1769; G0378; J1885; J2405; J7120